=== PATIENT | female | born 1990 | race Caucasian/White ===

== ENCOUNTER → 2025-02-01 | Outpatient (CLI) | payer MEDICAID ==
--- NOTE | 2025-02-01 10:28 | RADIOLOGY REPORT ---
INDICATION: PAIN RIGHT SHOULDER; RIGHT WRIST PAIN TECHNIQUE: 4 radiographic views of the right wrist were obtained. COMPARISON: None FINDINGS: There is no evidence of acute fracture or dislocation.The visualized joint space is well ma intained.The alignment is anatomical.The surrounding soft tissues are unremarkable.There is no bony l esions or erosions identified. IMPRESSION: No acute fracture
--- NOTE | 2025-02-01 10:29 | RADIOLOGY REPORT ---
EXAM: DI SHOULDER, COMPLETE (MIN 2 VWS) CLINICAL INDICATION: PAIN RIGHT SHOULDER; RIGHT WRIST PAIN TECHNIQUE: DI SHOULDER, COMPLETE (MIN 2 VWS) Comparison: None FINDINGS/IMPRESSION: There is no evidence of acute fracture or dislocation. The visualized joint space is well maintained. The alignment is anatomical. There is no radiopaque foreign body.
== END | disposition home or self-care (01) ==
LOC: RAD 09:31
PROVIDERS: ATTEND Family Medicine
DX: M25.511 Pain in right shoulder (principal); M25.531 Pain in right wrist
CPT/HCPCS: 73030; 73110